=== PATIENT | male | born 1940 | race Caucasian/White ===

== ENCOUNTER 2016-09-21 10:13 | Inpatient (IN) | payer OTHER ==
[2016-09-21] MEDS ORDERED: NS 1,000 ML IV ONE (10:29)
[2016-09-21] MEDS ORDERED: ONDANSETRON 4 MG/2 ML VIAL IVP ONE (10:29)
[2016-09-21 10:32] LABS: % IMMATURE GRANULYOCYTES 0.4 % (0.0-1.1); ABSOLUTE IMMATURE GRANULOCYTES 0.03 10^3/uL (0.00-0.10); ADD DIFF? NO; ADD MORPH? NO; ADD SCAN? NO; ATYPICAL LYMPHOCYTE FLAG 0 (0-99); FRAGMENT RBC FLAG 0 (0-99); HEMATOCRIT 35.7 % (40.0-51.0); HEMOGLOBIN 12.3 g/dL (13.7-17.5); LEFT SHIFT FLG 30 (0-99); LIPEMIA HEMOLYSIS FLAG 90 (0-99); MEAN CELL HEMOGLOBIN 32.2 pg (27.9-34.1); MEAN CELL HEMOGLOBIN CONCENTR. 34.5 g/dL (32.4-36.7); MEAN CELL VOLUME 93.5 fL (81.5-99.8); MEAN PLATELET VOLUME 8.6 fL (8.7-11.7); PLATELET CLUMPS FLAG 0 (0-99); PLATELET COUNT 164 10^3/uL (150-400); RED BLOOD CELL COUNT 3.82 10^6/uL (4.40-6.38); RED CELL DISTRIBUTION WIDTH 12.5 % (11.5-15.2)
--- NOTE | 2016-09-21 10:34 | EDPHY ---
H & P Stated Complaint: Abdo pain and intermittant N/V since yesterday at 4pm Time Seen by Provider: 09/21/16 10:19 HPI/ROS: Chief Complaint: Abdominal pain HPI: 76-year-old male with a history of type 2 diabetes started having abdominal pain yesterday afternoon. It is described as an intermittent waxing waning central abdominal pain which is dull. It is not radiating. At worst is about a 7/10. He has had 3 episodes of vomiting associated with this. Did have a small bowel movement yesterday and this morning which was firm. He normally has loose stools. Is not feeling constipated. Has history of kidney stones but does not feel the same. No urinary urgency or frequency. No fevers or chills. No chest pain or shortness of breath. No hematemesis. ROS: 10 point Review of Systems is negative except as noted in the HPI. PMH: Type 2 diabetes Medications: Metformin Allergies: No known drug allergies Social History: No smoking, occasional alcohol, no recreational drug use Family History: non-contributory Physical Exam: Gen: Awake, Alert, No Distress HEENT: Nose: no rhinorrhea Eyes: PERRLA, EOMI Mouth: Moist mucosa Neck: Supple, no JVD Chest: nontender, lungs clear to auscultation Heart: S1, S2 normal, no murmur Abd: Soft, tenderness in the left lower greater than the right lower quadrant., no guarding Back: no CVA tenderness, no midline tenderness Ext: no edema, non-tender Skin: no rash Neuro: CN II-XII intact, Sensation grossly intact, Strength 5/5 in bilateral upper and lower extremities - Personal History Tetanus Vaccine Date: 1999 - Medical/Surgical History Hx Asthma: No Hx Chronic Respiratory Disease: No Hx Diabetes: Yes Hx Cardiac Disease: No Hx Renal Disease: No Hx Cirrhosis: No Hx Alcoholism: No Hx HIV/AIDS: No Hx Splenectomy or Spleen Trauma: No Other PMH: KIDNEY STONES, HEATHER, HERNIA REPAIR, HTN, HYPERLIPIDEMIA. Type 2 diabetic. - Social History Smoking Status: Never smoked Constitutional: Initial Vital Signs Temperature (C) 36.6 C 09/21/16 10:20 Heart Rate 83 09/21/16 10:20 Respiratory Rate 16 09/21/16 10:20 Blood Pressure 119/66 09/21/16 10:20 O2 Sat (%) 93 09/21/16 10:20 O2 Delivery Mode Room Air Allergies/Adverse Reactions: No Known Allergies Allergy (Unverified 11/14/14 18:04) Home Medications: Medication Instructions Recorded Aspirin [Aspirin 81mg (*)] 81 mg PO DAILY 11/14/14 Herbals/Supplements -Info Only 1 each PO DAILY 11/14/14 Lisinopril/Hctz 20/12.5MG 1 tab PO DAILY 11/14/14 [Zestoretic/Prinzide 20/12.5MG (*)] Multivitamins [Multivitamin (*)] 1 tab PO DAILY 11/14/14 Pravastatin Sodium [Pravachol] 10 mg PO DAILY 11/14/14 Insulin Lispro [humALOG LISPRO 100 2 - 6 unit SC QID PRN #1 vial 11/15/14 units/ml (*)] Metformin HCl 09/21/16 Medical Decision Making - Diagnostics Imaging Results: Imaging Impressions Abdomen CT 09/21/16 10:29 Impression: 1. Mild partial small bowel obstruction of the jejunum. 2. Status post cholecystectomy. 3. Nonobstructive left nephrolithiasis. 4. Other chronic findings as above. Results called and discussed with Dr. Danny Jensen, on September 21, 2016 at 11:49 a.m. ED Course/Re-evaluation: Blood work is unremarkable. CT scan is noted. Patient has an early partial small -bowel obstruction with a transition point in the jejunum. I have discussed with hospitalist. Will admit to their service for further care. Patient be admitted under Dr. Joe. - Data Points Laboratory Results: Laboratory Results 09/21/16 10:25 09/21/16 10:25 09/21/16 09/21/16 10:25 10:25 WBC 8.17 10^3/uL 10^3/uL (3.80-9.50) RBC 3.82 10^6/uL L 10^6/uL (4.40-6.38) Hgb 12.3 g/dL L g/dL (13.7-17.5) Hct 35.7 % L % (40.0-51.0) MCV 93.5 fL fL (81.5-99.8) MCH 32.2 pg pg (27.9-34.1) MCHC 34.5 g/dL g/dL (32.4-36.7) RDW 12.5 % % (11.5-15.2) Plt Count 164 10^3/uL 10^3/uL (150-400) MPV 8.6 fL L fL (8.7-11.7) Neut % (Auto) 85.3 % H % (39.3-74.2) Lymph % (Auto) 9.9 % L % (15.0-45.0) Banner % (Auto) 4.2 % L % (4.5-13.0) Eos % (Auto) 0.0 % L % (0.6-7.6) Baso % (Auto) 0.2 % L % (0.3-1.7) Nucleat RBC Rel Count 0.0 % % (0.0-0.2) Absolute Neuts (auto) 6.97 10^3/uL H 10^3/uL (1.70-6.50) Absolute Lymphs (auto) 0.81 10^3/uL L 10^3/uL (1.00-3.00) Absolute Monos (auto) 0.34 10^3/uL 10^3/uL (0.30-0.80) Absolute Eos (auto) 0.00 10^3/uL L 10^3/uL (0.03-0.40) Absolute Basos (auto) 0.02 10^3/uL 10^3/uL (0.02-0.10) Absolute Nucleated RBC 0.00 10^3/uL 10^3/uL (0-0.01) Immature Gran % 0.4 % % (0.0-1.1) Immature Gran # 0.03 10^3/uL 10^3/uL (0.00-0.10) Sodium 139 mEq/L mEq/L (134-144) Potassium 4.9 mEq/L mEq/L (3.5-5.2) Chloride 105 mEq/L mEq/L (97-110) Carbon Dioxide 22 mEq/l mEq/l (22-31) Anion Gap 12 mEq/L mEq/L (8-16) BUN 36 mg/dL H mg/dL (7-23) Creatinine 1.4 mg/dL H mg/dL (0.7-1.3) Estimated GFR 49 Glucose 188 mg/dL H mg/dL (70-100) Calcium 9.4 mg/dL mg/dL (8.5-10.4) Total Bilirubin 0.6 mg/dL mg/dL (0.1-1.4) Conjugated Bilirubin 0.3 mg/dL mg/dL (0.0-0.5) Unconjugated Bilirubin 0.3 mg/dL mg/dL (0.0-1.1) AST 22 IU/L IU/L (17-59) ALT 31 IU/L IU/L (21-72) Alkaline Phosphatase 51 IU/L IU/L (38-126) Total Protein 7.1 g/dL g/dL (6.3-8.2) Albumin 4.4 g/dL g/dL (3.5-5.0) Lipase 96.0 IU/L IU/L (23-300) Medications Given: Discontinued Medications Sodium Chloride (Ns) 1,000 mls @ 0 mls/hr IV ONCE ONE PRN Reason: Wide Open Stop: 09/21/16 10:30 Last Admin: 09/21/16 10:38 Dose: 1,000 mls Morphine Sulfate (Morphine) 4 mg IVP ONCE ONE Stop: 09/21/16 10:30 Last Admin: 09/21/16 10:38 Dose: 4 mg Ondansetron HCl (Zofran) 4 mg IVP EDNOW ONE Stop: 09/21/16 10:30 Last Admin: 09/21/16 10:38 Dose: 4 mg Departure - Departure Disposition: [facility] Inpatient Acute Clinical Impression: Bowel obstruction Condition: Fair Referrals: Johnny Brink MD [Primary Care Provider] - As per Instructions
[2016-09-21] MEDS ORDERED: IOPAMIDOL (ISOVUE-300) 100 ML BTL ONE (10:39)
[2016-09-21 11:01] LABS: ALANINE AMINOTRANSFERASE 31 IU/L (21-72); ALBUMIN 4.4 g/dL (3.5-5.0); ALKALINE PHOSPHATASE 51 IU/L (38-126); ANION GAP 12 mEq/L (8-16); ASPARTATE AMINOTRANSFERASE 22 IU/L (17-59); BILIRUBIN,TOTAL 0.6 mg/dL (0.1-1.4); BILIRUBIN-CONJUGATED 0.3 mg/dL (0.0-0.5); BILIRUBIN-UNCONJUGATED 0.3 mg/dL (0.0-1.1); CALCIUM 9.4 mg/dL (8.5-10.4); CARBON DIOXIDE 22 mEq/l (22-31); CHLORIDE 105 mEq/L (97-110); CREATININE 1.4 mg/dL (0.7-1.3); GLOMERULAR FILTRATION RATE 49; GLUCOSE 188 mg/dL (70-100); POTASSIUM 4.9 mEq/L (3.5-5.2); SODIUM 139 mEq/L (134-144); TOTAL PROTEIN 7.1 g/dL (6.3-8.2)
[2016-09-21] MEDS ORDERED: ONDANSETRON DISINTEGRATING 4 MG TAB PO PRN (14:30)
--- NOTE | 2016-09-21 15:33 | GHP ---
[f rep st] HISTORY AND PHYSICAL DATE OF ADMISSION: 09/21/2016 CHIEF COMPLAINT: Abdominal pain. HISTORY OF PRESENT ILLNESS: The patient is a very nice 76-year-old man with a history of diabetes a nd hypertension who comes in with acute abdominal pain. He says the pain started at about 4 p.m. ye sterday and progressively got worse overnight, and he woke up at about 2 a.m. vomiting. He had a co uple more episodes of emesis through the night and has not had any further vomiting. He did have a very small BM this morning but none since. He is unsure if he has passed any gas. He thinks maybe he passed a little bit of gas this morning, but none since then either. When the pain continued to worsen, he called Dr. Brink's office, who recommended he come to the ER for evaluation. He did denton cribe some diaphoresis while vomiting, although has not had fevers or chills. He denies any other s ignificant symptoms. No headache, chest pain, shortness of breath. No urinary symptoms, although ceasar de jesus has had decreased urination today. He has never had pain like this previously. REVIEW OF SYSTEMS: A 10-point review of systems was done with pertinent positives present in HPI. PAST MEDICAL HISTORY: 1. Type 2 diabetes. 2. Dyslipidemia. 3. Hypertension. 4. Hypogonadism. 5. Abdominal aorta aneurysm. PAST SURGICAL HISTORY: Abdominal hernia repair, cholecystectomy, kidney stone extraction, melanoma, tonsillectomy. Colonoscopy was done a year ago and was normal. FAMILY HISTORY: Noncontributory. SOCIAL HISTORY: He is . They have no kids. He drinks 3 times a week and quit smoking many years ago. CURRENT MEDICATIONS: Lisinopril/hydrochlorothiazide 20/12.5 daily, metformin 1000 mg twice a day, p ravastatin 10 mg daily, aspirin daily, multivitamin daily. ALLERGIES: No known drug allergies. PHYSICAL EXAMINATION: VITAL SIGNS: He is afebrile. Heart rate 68, blood pressure 109/62, respirat ions 16. He is 98% on 3 L nasal cannula. GENERAL: He is a very pleasant 76-year-old man. He is i n very minimal distress. He is alert and oriented. His speech is fluent. HEENT: Head is atraumat ic. Eyes are anicteric. Pupils are equal. Extraocular movements intact. Mucous membranes are sli ghtly dry. Oropharynx is clear. NECK: Supple. No adenopathy. No thyromegaly. HEART: Regular r ate and rhythm. No murmur, gallop, or rub. LUNGS: Clear bilaterally. Slightly decreased breath s ounds at the bases. ABDOMEN: Slightly distended without significant tenderness, except in the mid abdominal area. No rebound or guarding. Rare bowel sounds that are high-pitched are noted. EXTREM ITIES: 1+ bilateral edema at the ankles. MUSCULOSKELETAL: No joint effusions or deformities noted . No muscle atrophy. NEUROLOGIC: He is alert and oriented x3. His speech is fluent. He moves al l 4 extremities equally. SKIN: Intact. No rash. PSYCH: Normal mood. LABORATORY DATA: CBC: White count 8.1, hemoglobin 12.3, platelet count 164. Electrolytes normal. BUN 36, creatinine 1.4. Glucose is 188. IMAGING: Abdominal CT scan shows a mild partial small bowel obstruction at the jejunum, nonobstruct negra left nephrolithiasis. ASSESSMENT AND PLAN: A 76-year-old who presents with acute abdominal pain and nausea and vomiting. CT scan revealed a possible partial small bowel obstruction at the jejunum. He did receive some mo rphine in the ER and is currently feeling better. 1. Partial small bowel obstruction. Patient appears comfortable. He is not actively vomiting and has no significant guarding on exam. The plan will be to admit him for pain control and IV fluids. He will require IV pain medications. We will start IV fluids and follow him clinically. We will c heck a flat plate of the abdomen in the a.m. I did talk with Dr. Salguero, his surgeon, who will f ollow along as needed. If he develops more nausea and vomiting overnight, would place an NG tube. 2. Type 2 diabetes. We will hold his metformin since he did receive some dye and put him on slidin g scale insulin as needed. 3. Hypertension. Currently, his blood pressure is low, likely from some dehydration. We will hold his lisinopril/hydrochlorothiazide and add p.r.n. IV antihypertensives as needed. 4. Dyslipidemia. We will hold his pravastatin until he is able to take oral. 5. DVT prophylaxis. We will start lie-ipqduhcss-buntzq heparin. 6. Code status: Patient wishes to be a full code. /[id number]/MODL
[2016-09-21] MEDS: NS 1,000 ML IV SCH ×2 (15:46→23:37)
[2016-09-21] MEDS ORDERED: D50W 25 GM/50 ML SYR IVP PRN (17:17)
[2016-09-21] MEDS: INSULIN REGULAR HUMAN 100 UNIT/ML SC SCH ×2 (18:56→23:43)
[2016-09-22] MEDS: ONDANSETRON 4 MG/2 ML VIAL IVP PRN ×2 (00:37→04:26)
[2016-09-22 05:30] LABS: % IMMATURE GRANULYOCYTES 0.3 % (0.0-1.1); ABSOLUTE IMMATURE GRANULOCYTES 0.02 10^3/uL (0.00-0.10); ADD DIFF? NO; ADD MORPH? NO; ADD SCAN? NO; ATYPICAL LYMPHOCYTE FLAG 0 (0-99); FRAGMENT RBC FLAG 0 (0-99); HEMATOCRIT 33.8 % (40.0-51.0); HEMOGLOBIN 11.4 g/dL (13.7-17.5); LEFT SHIFT FLG 50 (0-99); LIPEMIA HEMOLYSIS FLAG 80 (0-99); MEAN CELL HEMOGLOBIN 32.3 pg (27.9-34.1); MEAN CELL HEMOGLOBIN CONCENTR. 33.7 g/dL (32.4-36.7); MEAN CELL VOLUME 95.8 fL (81.5-99.8); MEAN PLATELET VOLUME 9.4 fL (8.7-11.7); PLATELET CLUMPS FLAG 0 (0-99); PLATELET COUNT 151 10^3/uL (150-400); RED BLOOD CELL COUNT 3.53 10^6/uL (4.40-6.38); RED CELL DISTRIBUTION WIDTH 12.6 % (11.5-15.2)
[2016-09-22 05:33] LABS: ANION GAP 6 mEq/L (8-16); CALCIUM 8.1 mg/dL (8.5-10.4); CARBON DIOXIDE 25 mEq/l (22-31); CHLORIDE 108 mEq/L (97-110); CREATININE 1.3 mg/dL (0.7-1.3); GLOMERULAR FILTRATION RATE 54; GLUCOSE 143 mg/dL (70-100); MAGNESIUM 1.8 mg/dL (1.6-2.3); POTASSIUM 4.7 mEq/L (3.5-5.2); SODIUM 139 mEq/L (134-144)
[2016-09-22] MEDS: INSULIN REGULAR HUMAN 100 UNIT/ML SC SCH ×3 (05:52→18:27)
[2016-09-22] MEDS: NS 1,000 ML IV SCH (07:44)
--- NOTE | 2016-09-22 09:40 | HOSPPROG ---
Hospitalist Progress Note Assessment/Plan: 76-year-old man admitted for partial small-bowel obstruction yesterday. Overnight his symptoms have worsened. He has been nauseated and feels a fullness in his epigastric area as well as the pain in his lower abdomen. He also admits to difficulty urinating required frequent straight caths over night. # small-bowel obstruction. Repeat flat plate does look a little worse than yesterday. * Place NG tube * Continue symptomatic relief and IV fluids * Surgery consult this morning with Dr. Killian # urinary retention: Likely secondary to narcotic use and activity today history BPH. * Place Rodriguez, will try to remove prior to discharge if he is off the narcotics and more ambulatory. * Consider Flomax when he is able to take p.o. # type 2 diabetes, continue sliding scale insulin while he is NPO # hypertension: Currently off his antihypertensives but his blood pressure is well controlled and is not needing IV antihypertensives at this time Subjective: Feels little worse over night. Feels more bloated and more fullness in his epigastric area. He is also nauseated. He he was unable to urinate overnight Objective: Vital Signs Temp Pulse Resp BP Pulse Ox 36.4 C 70 12 106/56 L 98 09/22/16 07:37 09/22/16 07:37 09/22/16 07:37 09/22/16 07:37 09/22/16 07:37 Laboratory Results 09/22/16 04:31 09/22/16 04:31 09/21/16 09/22/16 09/23/16 05:59 05:59 05:59 Intake Total 1610 Output Total 575 Balance 1035 - Physical Exam Constitutional: uncomfortable Eyes: PERRL, anicteric sclera, EOMI Ears, Nose, Mouth, Throat: hearing normal, dry mucous membranes Cardiovascular: regular rate and rhythym, no murmur, rub, or gallop, edema, No JVD Respiratory: no respiratory distress, no rales or rhonchi, clear to auscultation Gastrointestinal: tenderness, distension, No normoactive bowel sounds Genitourinary: no bladder fullness Skin: warm, normal color Musculoskeletal: No asymmetric calves Neurologic: AAOx3 Psychiatric: interacting appropriately, not anxious, not encephalopathic ICD10 Worksheet Patient Problems: Problems Problem Status Onset Diabetes mellitus Acute Bowel obstruction Acute
--- NOTE | 2016-09-22 14:17 | GCON ---
[f rep st] CONSULTATION REASON FOR CONSULTATION: I have been asked to see the patient in regard to a small-bowel obstructio n. This 76-year-old male is known to me from previous ventral hernia repair. Currently, he notes t hat for 3 days prior to admission he had some vague abdominal discomfort, decrease in amount of garcía l movements and flatus. Yesterday, he vomited 3 times and has had no further bowel activity. A CT scan on admission showed a mild partial small-bowel obstruction of the jejunum, evidence of previous cholecystectomy. ALLERGIES: None. CURRENT MEDICATIONS: Lisinopril, metformin, aspirin. PREVIOUS SURGERY: Ventral hernia repair, cholecystectomy. SOCIAL HISTORY: Nonsmoker, occasional alcohol use. REVIEW OF SYSTEMS: Type 2 diabetes. Otherwise, no heart disease, epilepsy, rheumatic fever. PHYSICAL EXAMINATION: GENERAL: Pleasant, awake, alert, male. NG tube is in place. LUNGS: Clear. HEART: Normal S1, S2, without murmur. Regular rate and rhythm. ABDOMEN: Mildly distended, soft . Some tenderness periumbilically, and he states that he has been getting morphine, otherwise, he w ould be more tender. EXTREMITIES/NEUROLOGIC: Unremarkable. CT scan is reviewed showing mildly dilated loops of small bowel in the left and central abdomen. It transitions to normal decompressed bowel in the right mid abdomen. ASSESSMENT: Small-bowel obstruction, likely due to adhesions. I have discussed with the patient on going expected management versus laparoscopy, possible laparotomy. He would like to have this resol mellissa as soon as possible with a surgical procedure. I will examine him again later today and we will make a decision. /[id number]/MODL
[2016-09-22] MEDS: ENOXAPARIN 40 MG/0.4 ML SYR SC SCH (14:30)
[2016-09-22] MEDS ORDERED: BUPIVACAINE 0.5% 30 ML SDV ONE (14:47)
[2016-09-22] MEDS ORDERED: PROPOFOL 200 MG/20 ML VIAL ONE (15:19)
[2016-09-22] MEDS ORDERED: fentaNYL 100 MCG/2 ML INJ ONE ×2 (15:19→17:14)
[2016-09-22] MEDS ORDERED: ONDANSETRON 4 MG/2 ML VIAL ONE (15:21)
[2016-09-22] MEDS ORDERED: ROCURONIUM 50 MG/5 ML VIAL ONE (15:21)
[2016-09-22] MEDS ORDERED: METOCLOPRAMIDE 10 MG/2 ML VIAL ONE (15:21)
[2016-09-22] MEDS ORDERED: MIDAZOLAM 2 MG/2 ML VIAL ONE (15:25)
[2016-09-22] MEDS ORDERED: CEFAZOLIN 2 GM/DEXTROSE/100 ML BAG IV ONE (15:49)
[2016-09-22] MEDS ORDERED: SUGAMMADEX SODIUM 200 MG/2 ML VIAL IVP ONE (16:21)
--- NOTE | 2016-09-22 17:09 | POSTOPPROG ---
Post Op Note Date of Operation: 09/22/16 Surgeon: Drew Salguero Pre-op Diagnosis: sbo Post-op Diagnosis: same Indication: sbo Procedure: laparoscopy, open laparotomy for lysis of adhesions Findings: adhesions around ileum Inf/Abcess present in the surg proc area at time of surgery?: No EBL: Minimal
--- NOTE | 2016-09-22 17:36 | GOP ---
[f rep st] OPERATIVE REPORT DATE OF OPERATION: SURGEON: Drew Salguero MD ANESTHESIA: General anesthetic. PREOPERATIVE DIAGNOSIS: Small-bowel obstruction. POSTOPERATIVE DIAGNOSIS: Small-bowel obstruction. PROCEDURE PERFORMED: Laparoscopy, laparotomy for small bowel obstruction. Certainly Blitz FINDINGS: INDICATIONS: Patient with abdominal pain and vomiting from small bowel obstruction. DESCRIPTION OF PROCEDURE: The abdomen was scrubbed with ChloraPrep, draped in the usual sterile fas hion. A Rodriguez catheter had been placed preoperatively. A laparoscope was introduced through a left subcostal incision. Two additional ports were placed for graspers and the small bowel was run. Th ere was a fair amount of ascites fluid in the abdomen. The decompressed terminal ilium was identifi ed, followed backwards until an area of adhesions was found with the bowel adhesed upon itself in an S-shaped fashion, and immediately above this was dilated, rubbery small bowel. The adhesions were tightened while initial attempt was made to use small Endoshears to cut these adhesions. It was fel t overly concerning an enterotomy might be made. Therefore, a right-sided McBurney's incision was d one in the bowel loop delivered through this incision so it could be addressed in an open fashion. Adhesions were taken down. The small bowel contents above this area of adhesions were unusually thi ck but clearly after the adhesions were lysed, the succus entericus in the small bowel above the adh esed area could be massaged through the bowel, and it was felt there was no intrinsic stricture in t his segment. The bowel was returned into the abdomen. The perineum closed with running 2-0 Vicryl, each muscularly, closed with 0 Vicryl. Marcaine infused in each layer. Skin closed with a V-Loc a nd Dermabond. The port sites were closed with 4-0 Vicryl and Dermabond. All ascites fluid was aspi rated free. Patient tolerated the procedure well. /[id number]/MODL
[2016-09-22] MEDS: LR 1,000 ML IV SCH (18:03)
[2016-09-23] MEDS ORDERED: CALCIUM CARBONATE 500 MG CHEWABLE TAB PO PRN (01:14)
[2016-09-23] MEDS: INSULIN REGULAR HUMAN 100 UNIT/ML SC SCH ×4 (01:15→18:44)
[2016-09-23] MEDS: ONDANSETRON 4 MG/2 ML VIAL IVP PRN (01:15)
[2016-09-23] MEDS: LR 1,000 ML IV SCH ×2 (01:19→11:25)
[2016-09-23] MEDS ORDERED: SIMETHICONE 80 MG TAB CHEW PO PRN (02:12)
[2016-09-23] MEDS: METOCLOPRAMIDE 10 MG/2 ML VIAL IVP PRN (02:20)
[2016-09-23 05:13] LABS: HEMATOCRIT 34.4 % (40.0-51.0); HEMOGLOBIN 11.6 g/dL (13.7-17.5); MEAN CELL HEMOGLOBIN 32.8 pg (27.9-34.1); MEAN CELL HEMOGLOBIN CONCENTR. 33.7 g/dL (32.4-36.7); MEAN CELL VOLUME 97.2 fL (81.5-99.8); RED BLOOD CELL COUNT 3.54 10^6/uL (4.40-6.38); RED CELL DISTRIBUTION WIDTH 12.4 % (11.5-15.2)
[2016-09-23 05:16] LABS: ANION GAP 6 mEq/L (8-16); CALCIUM 8.1 mg/dL (8.5-10.4); CARBON DIOXIDE 25 mEq/l (22-31); CHLORIDE 107 mEq/L (97-110); CREATININE 1.2 mg/dL (0.7-1.3); GLOMERULAR FILTRATION RATE 59; GLUCOSE 181 mg/dL (70-100); POTASSIUM 4.4 mEq/L (3.5-5.2); SODIUM 138 mEq/L (134-144)
--- NOTE | 2016-09-23 06:50 | SOAPPROG ---
SOAP Progress Note Assessment/Plan: Assessment: Plan: Subjective: vss, af pod 1 lysis of adhesions pt had difficulty voiding pre op. will start flomax today, remove rose tomorrow am. keep npo until passing flatus or stool, then advance diet as tolerated. ileus can persist 1-5 days average after lysis of adhesions. Objective: Vital Signs Temp Pulse Resp BP Pulse Ox 37.1 C 69 16 117/68 96 09/23/16 04:57 09/23/16 04:57 09/23/16 04:57 09/23/16 04:57 09/23/16 04:57 Laboratory Results 09/23/16 04:50 09/23/16 04:50 09/22/16 09/23/16 09/24/16 05:59 05:59 05:59 Intake Total 1610 1450 Output Total 575 1680 Balance 1035 -230 ICD10 Worksheet Patient Problems: Problems Problem Status Onset Bowel obstruction Acute Diabetes mellitus Acute
[2016-09-23] MEDS: ENOXAPARIN 40 MG/0.4 ML SYR SC SCH (09:08)
[2016-09-23] MEDS: TAMSULOSIN HCL 0.4 MG CAP PO SCH (09:08)
--- NOTE | 2016-09-23 11:00 | HOSPPROG ---
Hospitalist Progress Note Assessment/Plan: 76-year-old man admitted for partial small-bowel obstruction. He went to surgery yesterday for lysis of adhesions. Today he has not yet passed gas that he has noted although he did have some stool on the bed sheets this morning. He still pretty uncomfortable. # small-bowel obstruction. Status post surgery * Defer to surgery when patient can eat * Continue IV fluids for now # urinary retention: Now with hematuria, I wonder if the patient pulled on his Rose overnight * Hold Lovenox * Continue Rose * Will need follow-up with Urology as an outpatient for urinary retention and hematuria # type 2 diabetes, continue sliding scale insulin while he is NPO., blood sugar slightly elevated will increase his sliding scale. # hypertension: Currently off his antihypertensives but his blood pressure is well controlled and is not needing IV antihypertensives at this time Subjective: Patient still feels a little under the weather, still having some abdominal discomfort and distention but much better. No chest pain no shortness of breath having quite a bit hematuria through his Rose Objective: Vital Signs Temp Pulse Resp BP Pulse Ox 37.4 C 71 16 121/69 H 95 09/23/16 08:00 09/23/16 08:00 09/23/16 08:00 09/23/16 08:00 09/23/16 08:00 Laboratory Results 09/23/16 04:50 09/23/16 04:50 09/22/16 09/23/16 09/24/16 05:59 05:59 05:59 Intake Total 1610 1450 Output Total 575 1680 Balance 1035 -230 - Physical Exam Constitutional: appears nourished, uncomfortable Eyes: PERRL, anicteric sclera, EOMI Ears, Nose, Mouth, Throat: moist mucous membranes Cardiovascular: regular rate and rhythym, no murmur, rub, or gallop Respiratory: no respiratory distress, clear to auscultation Gastrointestinal: distension, No normoactive bowel sounds Genitourinary: rose in urethra, other (Hematuria) Skin: warm Musculoskeletal: No muscular tenderness Neurologic: AAOx3 Psychiatric: interacting appropriately, not anxious, not encephalopathic ICD10 Worksheet Patient Problems: Problems Problem Status Onset Diabetes mellitus Acute Bowel obstruction Acute
[2016-09-23] MEDS: traMADol 50 MG TAB PO PRN (20:04)
[2016-09-24] MEDS: INSULIN REGULAR HUMAN 100 UNIT/ML SC SCH ×4 (01:12→18:17)
[2016-09-24] MEDS: TAMSULOSIN HCL 0.4 MG CAP PO SCH (07:56)
[2016-09-24] MEDS: METOCLOPRAMIDE 10 MG/2 ML VIAL IVP PRN ×2 (07:56→21:17)
[2016-09-24] MEDS: LR 1,000 ML IV SCH (11:53)
--- NOTE | 2016-09-24 12:51 | SOAPPROG ---
SOAP Progress Note Assessment/Plan: Assessment: Plan: Subjective: vss, af abd soft, mildly distended. passed flatus x 1 last pm, none today. on clear liq- would not advance until clearly having bowel function., Objective: Vital Signs Temp Pulse Resp BP Pulse Ox 36.8 C 60 14 108/57 L 93 09/24/16 07:41 09/24/16 07:41 09/24/16 07:41 09/24/16 07:41 09/24/16 07:41 Laboratory Results 09/23/16 04:50 09/23/16 04:50 09/23/16 09/24/16 09/25/16 05:59 05:59 05:59 Intake Total 1450 1800 Output Total 1680 700 Balance -230 1100 ICD10 Worksheet Patient Problems: Problems Problem Status Onset Bowel obstruction Acute Diabetes mellitus Acute
--- NOTE | 2016-09-24 16:23 | HOSPPROG ---
Hospitalist Progress Note Assessment/Plan: 76-year-old man admitted for partial small-bowel obstruction. He went to surgery 09/22 for lysis of adhesions. he continues to have a mild postop ileus but is less distended today and admits to less pain. # small-bowel obstruction. Status post surgery * clear liquids, advance if patient passes more gas or has BM * Continue IV fluids for now # urinary retention: had hematuria yesterday that is clearing for the most part. He has a remote history of BPH. * Hold Lovenox * Discontinue Rose in the next 1-2 days and make sure he can urinate * Will need follow-up with Urology as an outpatient for urinary retention and hematuria, patient knows Dr. Abdul # type 2 diabetes, continue sliding scale insulin can resume his oral medications Once he eats better # hypertension: Currently off his antihypertensives but his blood pressure is well controlled and is not needing IV antihypertensives at this time Subjective: doing a little bit better. Has less pain and less distension but still not passing much gas and has not had a bowel movement Objective: Vital Signs Temp Pulse Resp BP Pulse Ox 36.8 C 71 16 105/54 L 91 L 09/24/16 15:46 09/24/16 15:46 09/24/16 15:46 09/24/16 15:46 09/24/16 15:46 Laboratory Results 09/23/16 04:50 09/23/16 04:50 09/23/16 09/24/16 09/25/16 05:59 05:59 05:59 Intake Total 1450 1800 Output Total 1680 700 600 Balance -230 1100 -600 - Physical Exam Constitutional: obese Cardiovascular: regular rate and rhythym, no murmur, rub, or gallop Respiratory: no respiratory distress, reduced air movement Gastrointestinal: tenderness, distension, other ( wound clean and dry), No normoactive bowel sounds ( decreased but present) Genitourinary: rose in urethra Neurologic: AAOx3 Psychiatric: interacting appropriately, not anxious, not encephalopathic ICD10 Worksheet Patient Problems: Problems Problem Status Onset Diabetes mellitus Acute Bowel obstruction Acute
[2016-09-24 23:05] VITALS: PULSE 69; O2SAT 90
[2016-09-24] MEDS: traMADol 50 MG TAB PO PRN (23:34)
[2016-09-25] MEDS: INSULIN REGULAR HUMAN 100 UNIT/ML SC SCH ×3 (00:40→11:50)
[2016-09-25 05:52] LABS: HEMOGLOBIN 9.3 g/dL (13.7-17.5); MEAN CELL HEMOGLOBIN 31.8 pg (27.9-34.1); MEAN CELL HEMOGLOBIN CONCENTR. 33.2 g/dL (32.4-36.7); MEAN CELL VOLUME 95.9 fL (81.5-99.8); RED BLOOD CELL COUNT 2.92 10^6/uL (4.40-6.38)
[2016-09-25 06:01] LABS: ANION GAP 4 mEq/L (8-16); CALCIUM 7.4 mg/dL (8.5-10.4); CARBON DIOXIDE 27 mEq/l (22-31); CHLORIDE 105 mEq/L (97-110); CREATININE 1.1 mg/dL (0.7-1.3); GLOMERULAR FILTRATION RATE > 60; GLUCOSE 139 mg/dL (70-100); POTASSIUM 3.9 mEq/L (3.5-5.2); SODIUM 136 mEq/L (134-144)
--- NOTE | 2016-09-25 07:23 | SOAPPROG ---
SOAP Progress Note Assessment/Plan: Assessment: Plan: Subjective: vss, passing flatus, had a small stool abd soft. minimal serous leak from trocar site- not a big deal. reccomend- advance diet dc home today if no acute problem. dc rose, perhaps continue flomax as outpatient. follo up with kelin 1 week. thanks Objective: Vital Signs Temp Pulse Resp BP Pulse Ox 37.5 C 69 16 119/57 L 90 L 09/24/16 23:03 09/24/16 23:03 09/24/16 23:03 09/24/16 23:03 09/24/16 23:03 Laboratory Results 09/25/16 05:32 09/25/16 05:32 09/24/16 09/25/16 09/26/16 05:59 05:59 05:59 Intake Total 1800 2540 Output Total 700 1400 Balance 1100 1140 ICD10 Worksheet Patient Problems: Problems Problem Status Onset Bowel obstruction Acute Diabetes mellitus Acute
[2016-09-25] MEDS: TAMSULOSIN HCL 0.4 MG CAP PO SCH (07:51)
[2016-09-25 08:17] VITALS: BP 118/61; RESP 18; TEMP 98.3
--- NOTE | 2016-09-25 18:46 | GDS ---
[f rep st] DISCHARGE SUMMARY DISCHARGE DIAGNOSES: Include: 1. Acute small bowel obstruction. 2. Acute urinary retention. 3. Diabetes type 2. 4. Hypertension. 5. Recent adhesion lysis. HISTORY OF PRESENT ILLNESS: A 76-year-old male with recent adhesion lysis surgery, presenting with acute small bowel obstruction. For details of patient's initial presentation, please see the histor y and physical dated 09/21/2016. CONSULTATIVE SERVICES: Include general surgery, Dr. Salguero. PROCEDURES: Include: 1. Adhesion lysis on 09/22/2016. 2. CT scan of the abdomen: Patient shows mild partial small bowel obstruction. HOSPITAL COURSE BY ISSUE: 1. Acute small bowel obstruction. The patient was thought to have SBO secondary to adhesions, was taken to the operating room by Dr. Salguero, and had prompt improvement in his symptoms postoperati vely. On the day of disposition, he is taking a regular diet, has passed large stools, and is witho ut abdominal discomfort. 2. Acute urinary retention. Based on history, suspect it is related to prostatic hypertrophy. The patient was initiated on Flomax, and will be continued on this at disposition. MEDICATIONS AT THE TIME OF DISPOSITION: Please reference medication reconciliation printed on 09/25. FOLLOWUP APPOINTMENTS: Include with his primary care provider next week, as well as with Dr. Estefany eckert. PENDING STUDIES: At the time of this dictation, none. I spent greater than 30 minutes in the planning and coordination of this discharge. /[id number]/MODL
== END 2016-09-25 14:12 | disposition home or self-care (01) | DRG 337 ==
LOC: F3N 14:04 → OBSVTOIN 14:30
PROVIDERS: ADMIT Internal Medicine; ATTEND Internal Medicine
PROC: 0DN84ZZ Release Small Intestine, Percutaneous Endoscopic Approach (ICD-10-PCS; principal; 2016-09-22 15:31)
DX: K56.5 Intestinal adhesions [bands] with obstruction (postinfection) (principal); R33.9 Retention of urine, unspecified; E11.9 Type 2 diabetes mellitus without complications; I10 Essential (primary) hypertension; N40.1 Benign prostatic hyperplasia with lower urinary tract symptoms; E78.5 Hyperlipidemia, unspecified; Z79.84 Long term (current) use of oral hypoglycemic drugs
CPT/HCPCS: 96374; 97116-GP; 97161-GP; 97530-GP; G8978-GP-CJ; G8979-GP-CI; J0690; J1650; J1815; J2250; J2405; J2704; J2765; J3010; Q9967

== ENCOUNTER → 2018-01-05 | Outpatient (CLI) | payer OTHER | LOC: BHFA 08:30 | PROVIDERS: ATTEND Internal Medicine Cardiovascular Disease | DX: I77.819 Aortic ectasia, unspecified site (principal); E78.00 Pure hypercholesterolemia, unspecified ==

== ENCOUNTER → 2018-05-18 | Outpatient (CLI) | payer OTHER ==
[~2018-05-18] MED LIST: IOPAMIDOL (ISOVUE 370) 100 ML BTL IV ONE
== END ==
LOC: FIMAGING 13:59
PROVIDERS: ATTEND Internal Medicine Cardiovascular Disease
DX: E78.00 Pure hypercholesterolemia, unspecified (principal)
CPT/HCPCS: 71275; Q9967; 82565-PO

== ENCOUNTER 2018-07-29 14:07 | Emergency (ER) | payer OTHER ==
--- NOTE | 2018-07-29 15:17 | EDPHY ---
H & P Stated Complaint: Injury to right hip 07/28/18, while skiing. Time Seen by Provider: 07/29/18 15:15 HPI/ROS: HPI: This is a 69-year-old male who presents with Chief Complaint: Injury to right hip 07/28/18, while skiing. Location: Lower back, right hip Quality: Injury Duration: Yesterday Signs and Symptoms: No bleeding, no radiation, no numbness, no weakness, no tingling, no incontinence, + decreased range of motion, no swelling, + pain, no fever Timing: Gradual onset Severity: Moderate to severe Context: Patient was skiing yesterday, wearing a helmet, when his left ski when out from his midline causing hip abduction and he landed on the lateral aspect of his right hip. He is able to continue to ski down the mountain. He woke up this morning complaining of right groin pain with decreased flexion and extension at the hip. He reports that he has tenderness on his tailbone. Denies LOC/head injury/neck pain/dizziness/nausea/vomiting/amnesia. Denies change in bowel or bladder habits. Using crutches to aid ambulation. Known history of degenerative changes in spine. Modifying Factors: Tylenol and ibuprofen Comment: ROS: A comprehensive 10 system review of systems is otherwise negative aside from elements mentioned in the history of present illness. MEDICAL/SURGICAL/SOCIAL HISTORY: Medical history: KIDNEY STONES, HTN, HYPERLIPIDEMIA. Type 2 diabetic. Surgical history: Cholecystectomy, hernia repair Social history: Former smoker. . CONSTITUTIONAL: Well-developed, well-nourished, elderly physically fit white male, awake and alert, no obvious distress HEENT: Atraumatic and normocephalic. NECK: supple, no midline tenderness, flexion 45 degrees, extension 45 degrees, right and left lateral flexion 45 degrees. No meningismus. Cardiovascular: Normal S1/S2, regular rate, regular rhythm, without murmur rub or gallop. PULMONARY/CHEST: Symmetrical and nontender. no crepitus. Clear to auscultation bilaterally. Good air movement. No accessory muscle usage. ABDOMEN: Soft, nondistended, nontender, no ecchymosis. PELVIC: no pain with rocking; bilateral hips flexion 125 degrees, extension 30 degrees, with no pain internal rotation and no pain external rotation. BACK: No midline tenderness, bilateral lumbar reproducible paraspinous muscle tenderness; no paraspinous spasm, deep tendon reflexes 2/2, moderate pain with straight leg raise only able to lift approximately 20 off of the stretcher, No foot drop. Achilles reflexes are equal bilaterally. Able to walk on heels and toes without difficulty. EXTREMITIES: 2/2 pulses, strength 5/5, right HIP: Flexion to 125, extension to 115, hyper extension to 15, abduction to 45. No Pain with internal rotation and external rotation. Mild tenderness over greater trochanter. DIP/ PIP/MCP flexion/extension intact with good light touch sensation. no deformities , no clubbing, no cyanosis or edema. NEUROLOGICAL: no focal neuro deficits. GCS 15. Light touch sensation intact. SKIN: Warm and dry, no erythema. no rash. Good capillary refill. Source: Patient Exam Limitations: No limitations - Personal History Current Tetanus Diphtheria and Acellular Pertussis (TDAP): Yes Tetanus Vaccine Date: 1999 - Medical/Surgical History Hx Asthma: No Hx Chronic Respiratory Disease: No Hx Diabetes: Yes Hx Cardiac Disease: No Hx Renal Disease: No Hx Cirrhosis: No Hx Alcoholism: No Hx HIV/AIDS: No Hx Splenectomy or Spleen Trauma: No Other PMH: KIDNEY STONES, HEATHER, HERNIA REPAIR, HTN, HYPERLIPIDEMIA. Type 2 diabetic. - Social History Smoking Status: Former smoker Constitutional: Initial Vital Signs Temperature (C) 36.6 C 07/29/18 14:14 Heart Rate 88 07/29/18 14:14 Respiratory Rate 18 07/29/18 14:14 Blood Pressure 129/72 H 07/29/18 14:14 O2 Sat (%) 94 07/29/18 14:14 O2 Delivery Mode Room Air Allergies/Adverse Reactions: No Known Allergies Allergy (Unverified 11/14/14 18:04) Home Medications: Medication Instructions Recorded Lisinopril/Hctz 20/12.5MG 1 tab PO DAILY 11/14/14 [Zestoretic/Prinzide 20/12.5MG (*)] Pravastatin Sodium [Pravachol] 10 mg PO DAILY 11/14/14 Aspirin EC [Aspirin EC 81 mg (*)] 81 mg PO DAILY 09/21/16 metFORMIN HCL [Glucophage 1000 mg] 1,000 mg PO BIDMEAL 09/21/16 Tamsulosin HCl [Flomax 0.4 MG (*)] 0.4 mg PO DAILY #30 cap 09/25/16 Diazepam [Valium 5 MG (*)] 5 mg PO TID PRN #12 tab 07/29/18 methylPREDNISolone [Medrol Dose 1 each PO AD #1 ea 07/29/18 Agustin] oxyCODONE/APAP 5/325 [Percocet 1 - 2 tab PO Q4H PRN #10 tab 07/29/18 5/325 (*)] Medical Decision Making - Diagnostics Imaging Results: Imaging Impressions Hip X-Ray 07/29/18 14:19 Impression: Mild degenerative change in both hips. No evidence for acute osseous abnormality right hip. Lumbar Spine X-Ray 07/29/18 15:25 Impression: Bilateral spondylolysis at L4, with 20 mm of anterior spondylolisthesis of L4 on L5, similar in appearance to the comparison CT from September 2016. Multilevel degenerative disk and degenerative joint disease lumbar spine, most severe at L4-L5 and L5-S1. Sacrum and Coccyx X-Ray 07/29/18 15:25 Impression: No evidence for a sacral fracture. Mild posterior subluxation of the coccyx at the distal sacral segment, which could be acute or chronic. ED Course/Re-evaluation: Vital signs reviewed and stable upon arrival. Called by Radiologist that x-ray show: Hip X-Ray 07/29/18 14:19 Impression: Mild degenerative change in both hips. No evidence for acute osseous abnormality right hip. Lumbar Spine X-Ray 07/29/18 15:25 Impression: Bilateral spondylolysis at L4, with 20 mm of anterior spondylolisthesis of L4 on L5, similar in appearance to the comparison CT from September 2016. Multilevel degenerative disk and degenerative joint disease lumbar spine, most severe at L4-L5 and L5-S1. Sacrum and Coccyx X-Ray 07/29/18 15:25 Impression: No evidence for a sacral fracture. Mild posterior subluxation of the coccyx at the distal sacral segment, which could be acute or chronic. Patient has crutches already and wants to be discharged home. Offered inpatient admission and MRI but patient reports that he has appointment with PCP tomorrow and he can order the MRI outpatient. Given Medrol Dosepak, Valium for muscle spasms and Percocet as needed No signs of neurovascular compromise/tenting of skin/compartment syndrome/ extremities and joints examined above and below area of concern and are neurovascularly intact/cauda equina syndrome/saddle anesthesia. Patient ambulatory into the care of his at discharge. This patient was seen under the supervision of my primary supervising physician. I evaluated care for this patient independently. Differential Diagnosis: Back pain including but not limited to muscular pain, herniated disc, spine fracture, intra-abdominal causes and urinary tract infection. Departure - Departure Disposition: Home, Routine, Self-Care Clinical Impression: Lumbar degenerative disc disease Strain of right inguinal muscle Qualifiers: Encounter type: initial encounter Qualified Code(s): S39.013A - Strain of muscle, fascia and tendon of pelvis, initial encounter Lumbar spinal stenosis Qualifiers: Neurogenic claudication status: without neurogenic claudication Qualified Code( s): M48.061 - Spinal stenosis, lumbar region without neurogenic claudication Spondylisthesis Qualifiers: Spinal region: lumbosacral Qualified Code(s): M43.17 - Spondylolisthesis, lumbosacral region Condition: Good Instructions: Groin Strain (ED), Lumbar Radiculopathy (ED), Spondylolisthesis ( ED), Degenerative Disc Disease (ED) Additional Instructions: Limit use of right lower extremity until pain free. Take Tylenol 650 mg every 4 hours and/or Ibuprofen 600 mg every 8 hours with food as needed for pain. Use Percocet every 6 hours as needed for severe/break through pain. Do not use Tylenol and Percocet concomitantly. Take Medrol Dosepak as directed. Take Valium every 8 hr as needed for muscle spasms. Keep follow-up appointment with PCP tomorrow. MRI lumbar spine outpatient is recommended. Follow up with Neurosurgery in 3-5 days at which time they will evaluate and recommend with you if conservative management versus MRI is indicated. Return to the ER immediately if you have new or worsening back pain, fevers/ chills, flu like symptoms, incontinence or inability to urinate or defecate, weakness, paralysis, or any other symptom that concerns you Referrals: Johnny Brink MD [Primary Care Provider] - As per Instructions Steffen Alvarado MD [Medical Doctor] - As per Instructions Prescriptions: Diazepam [Valium 5 MG (*)] 5 mg PO TID PRN #12 tab PRN Reason: Spasms methylPREDNISolone [Medrol Dose Agustin] 1 each PO AD #1 ea oxyCODONE/APAP 5/325 [Percocet (*)] 1 - 2 tab PO Q4H PRN #10 tab PRN Reason: Pain, Severe
[2018-07-29 17:44] VITALS: BP 122/66
== END 2018-07-29 17:47 | disposition home or self-care (01) ==
DX: S39.013A Strain of muscle, fascia and tendon of pelvis, initial encounter (principal); M48.061 Spinal stenosis, lumbar region without neurogenic claudication; M43.17 Spondylolisthesis, lumbosacral region; I10 Essential (primary) hypertension; E11.9 Type 2 diabetes mellitus without complications; Y93.23 Activity, snow (alpine) (downhill) skiing, snowboarding, sledding, tobogganing and snow tubing; V00.321A Fall from snow-skis, initial encounter; Y92.838 Other recreation area as the place of occurrence of the external cause; Z79.4 Long term (current) use of insulin

== ENCOUNTER → 2018-07-31 | Outpatient (CLI) | payer OTHER | LOC: FIMAGING 13:00 | PROVIDERS: ATTEND Family Medicine Sports Medicine | DX: M43.16 Spondylolisthesis, lumbar region (principal); M48.061 Spinal stenosis, lumbar region without neurogenic claudication; M51.26 Other intervertebral disc displacement, lumbar region | CPT/HCPCS: 72148-PN ==

== ENCOUNTER → 2018-08-10 | Outpatient (CLI) | payer OTHER | LOC: FIMAGING 14:26 | PROVIDERS: ATTEND Neurological Surgery | DX: S32.501A Unspecified fracture of right pubis, initial encounter for closed fracture (principal); S32.10XA Unspecified fracture of sacrum, initial encounter for closed fracture ==